=== PATIENT | female | born 1950 | race Caucasian/White ===

== ENCOUNTER 2017-09-12 08:40 | Emergency (ER) | payer MEDICAID, MEDICARE, OTHER ==
[2017-09-12 09:48] LABS: ABSOLUTE BASOPHILS # (AUTO) 0.1 10^3/uL (0.0-0.2); ABSOLUTE EOSINOPHILS # (AUTO) 0.1 10^3/uL (0.0-0.6); ABSOLUTE LYMPHOCYTES (AUTO) 2.2 10^3/uL (0.5-4.7); ABSOLUTE MONOCYTES (AUTO) 0.7 10^3/uL (0.1-1.4); BASOPHILS % (AUTO) 0.6 % (0-2); EOSINOPHILS % (AUTO) 0.9 % (0-6); HEMATOCRIT 47.6 % (36.0-47.0); HEMOGLOBIN 16.4 g/dL (12.0-15.5); LYMPHOCYTES % (AUTO) 16.8 % (13-45); MEAN CORPUSCULAR HEMOGLOBIN 30.9 pg (27.0-33.4); MEAN CORPUSCULAR HGB CONC 34.5 g/dL (32.0-36.0); MEAN CORPUSCULAR VOLUME 90 fl (80-97); MONOCYTES % (AUTO) 5.4 % (3-13); PLATELET COUNT 271 10^3/uL (150-450); RED BLOOD COUNT 5.31 10^6/uL (3.72-5.28); RED CELL DISTRIBUTION WIDTH 15.1 % (11.5-14.0); SEGMENTED NEUTROPHILS % (AUTO) 76.3 % (42-78); TOTAL CELLS COUNTED % (AUTO) 100 %; WHITE BLOOD COUNT 13.2 10^3/uL (4.0-10.5)
--- NOTE | 2017-09-12 10:08 | ER Document Report ---
ED General - General Chief Complaint: Swollen Glands Stated Complaint: NECK SWELLING Time Seen by Provider: 09/12/17 09:06 TRAVEL OUTSIDE OF THE [place] IN LAST 30 DAYS: No - HPI Notes: 67-year-old female who presents with several complaints. Patient primarily complains of a mass in her left axilla as well as a fullness and mass in her suprasternal region. When questioned further, she states for the last several weeks to months she has had a re-seen dysphagia for solids. She recently saw her primary care doctor and had her "thyroid checked" was told that everything was "fine". She has had no unplanned weight loss, no history of malignancy. Of note, she has had night sweats but only one night which was last night. She is on no new medications. She has had no recent cat bites or scratches. No other modifying factors, no other associated symptoms, no other provocative or palliative factors. - Related Data Allergies/Adverse Reactions: acetaminophen [From Darvocet-N] Allergy (Verified 09/12/17 08:45) ceftriaxone [From Rocephin] Allergy (Verified 09/12/17 08:45) ciprofloxacin [From Cipro] Allergy (Verified 09/12/17 08:45) diclofenac [From Arthrotec] Allergy (Verified 09/12/17 08:45) lincomycin Allergy (Verified 09/12/17 08:45) misoprostol [From Arthrotec] Allergy (Verified 09/12/17 08:45) propoxyphene [From Darvocet-N] Allergy (Verified 09/12/17 08:45) sulfamethoxazole [From Septra] Allergy (Verified 09/12/17 08:45) topiramate [From Topamax] Allergy (Verified 09/12/17 08:45) trimethoprim [From Septra] Allergy (Verified 09/12/17 08:45) Past Medical History - Social History Smoking Status: Never Smoker Family History: Reviewed & Not Pertinent - Past Medical History Cardiac Medical History: Reports: Hx Hypercholesterolemia, Hx Hypertension Neurological Medical History: Reports: Hx Migraine GI Medical History: Reports: Hx Gastroesophageal Reflux Disease Past Surgical History: Reports: Hx Section, Hx Herniorrhaphy, Hx Hysterectomy, Hx Orthopedic Surgery - Immunizations Immunizations up to date: Yes Review of Systems - Review of Systems Notes: Review of systems as in the history of present illness, otherwise negative. Physical Exam - Vital signs Vitals: Temp Pulse Resp BP Pulse Ox 97.6 F 78 16 196/102 H 99 09/12/17 08:45 09/12/17 08:45 09/12/17 08:45 09/12/17 08:45 09/12/17 08:45 - Notes Notes: General: Well developed . HEENT: Normocephalic, atraumatic. Pupils equal round reactive to light. No JVD. Chest: No trauma. There is fullness about the suprasternal notch, non-mobile. Nontender. No skin changes. Respiratory: Good air exchange, normal excursion. Cardiac: Regular rhythm. No murmurs or gallops. Abdomen: Soft, benign. Nondistended. Nontender. Back: No asymmetry or gross abnormality. Motor: Grossly normal power and tone. Neurologic: Alert, nonfocal. Cranial nerves II-12 are intact. Sensation intact. Vascular: Well perfused. Normal peripheral pulses. Skin: No petechiae or purpura. Axilla: The left axilla has an irregular mass that is palpable and mildly mildly nontender. No skin changes or erythema.. Course - Re-evaluation Re-evalutation: 67-year-old female presents with the after mentioned symptoms. Certainly would be concerned over the potential for malignancy, hematologic or otherwise. There is no obvious evidence of infection. May be related to underlying esophageal stricture. Doubt dissection. Plan to proceed with basic labs, x-ray , reassess. Labs reviewed, grossly unremarkable except for mild neutrophilia. Chest x-ray is unremarkable. Chemistries are normal. Given the patient's persistent symptoms, I like to proceed with CT imaging to evaluate for underlying mediastinal adenopathy, mass or metastatic disease. CT imaging is returned and is unremarkable. Patient is cautioned that she must follow close with her primary care physician , she may also benefit from GI follow-up to evaluate for esophageal stricture in her odynophagia/dysphagia. - Vital Signs Vital signs: Temp Pulse Resp BP Pulse Ox 97.6 F 78 16 196/102 H 99 09/12/17 08:45 09/12/17 08:45 09/12/17 08:45 09/12/17 08:45 09/12/17 08:45 - Laboratory Result Diagrams: 09/12/17 09:37 09/12/17 09:37 Laboratory results interpreted by me: 09/12/17 09/12/17 09:37 09:37 WBC 13.2 H RBC 5.31 H Hgb 16.4 H Hct 47.6 H RDW 15.1 H Absolute Neutrophils 10.0 H BUN 25 H Discharge - Discharge Clinical Impression: Dysphagia Qualifiers: Dysphagia type: unspecified Qualified Code(s): R13.10 - Dysphagia, unspecified Axillary mass Qualifiers: Laterality: left Qualified Code(s): R22.32 - Localized swelling, mass and lump , left upper limb Disposition: HOME, SELF-CARE Instructions: Dysphagia ([facility]), Growth or Mass, Pending Workup ([facility]) Referrals: RUKHSANA KAY MD [Primary Care Provider] - Follow up as needed
[2017-09-12 10:09] LABS: ALANINE AMINOTRANSFERASE 35 U/L (9-52); ALBUMIN 4.4 g/dL (3.5-5.0); ALKALINE PHOSPHATASE 92 U/L (38-126); ANION GAP 13 (5-19); ASPARTATE AMINO TRANSFERASE 26 U/L (14-36); BILIRUBIN,DIRECT 0.4 mg/dL (0.0-0.4); BILIRUBIN,TOTAL 1.1 mg/dL (0.2-1.3); BLOOD UREA NITROGEN 25 mg/dL (7-20); CALCIUM 9.8 mg/dL (8.4-10.2); CARBON DIOXIDE 28 mmol/L (22-30); CHLORIDE 103 mmol/L (98-107); GLUCOSE 95 mg/dL (75-110); POTASSIUM 4.4 mmol/L (3.6-5.0); SODIUM 143.6 mmol/L (137-145); TOTAL PROTEIN 7.8 g/dL (6.3-8.2)
[2017-09-12 12:13] VITALS: BP 181/89
--- NOTE | 2017-09-13 15:11 | RADIOLOGY REPORT (SQ) ---
EXAM DESCRIPTION: CHEST 2 VIEWS COMPLETED DATE/TIME: 09/12/2017 9:27 am REASON FOR STUDY: Cough, axillary and adenopathy, suprasternal mass COMPARISON: None. EXAM PARAMETERS: NUMBER OF VIEWS: Two view. TECHNIQUE: Frontal and lateral radiographic views of the chest acquired. RADIATION DOSE: N/A LIMITATIONS: None. FINDINGS: LUNGS AND PLEURA: Subsegmental atelectasis is present in the lower lung caraballo. There is no acute pulmonary infiltrate or pleural effusion. MEDIASTINUM AND HILAR STRUCTURES: No masses or contour abnormalities. HEART AND VASCULATURE: Heart normal size. No evidence of failure. BONES: No acute findings. HARDWARE: None. OTHER: No other significant finding. IMPRESSION: No acute cardiopulmonary disease. TECHNICAL DOCUMENTATION: JOB ID: [id number] [employer]- All Rights Reserved Reading location - IP/workstation name: [email or web address]
--- NOTE | 2017-09-13 15:13 | RADIOLOGY REPORT (SQ) ---
EXAM DESCRIPTION: CT CHEST WITH COMPLETED DATE/TIME: 09/12/2017 10:58 am REASON FOR STUDY: Left axill mass, suprasternal fullness, dysphagia COMPARISON: Chest x-ray 09/12/2017 EXAM PARAMETERS: TECHNIQUE: CT scan of the chest performed using helical scanning technique with dyn amic intravenous contrast injection. Images reviewed with lung, soft tissue and bone windows. Recon structed coronal and sagittal MPR images reviewed. All images stored on PACS. All CT scanners at this facility use dose modulation, iterative reconstruction, and/or weight based d osing when appropriate to reduce radiation dose to as low as reasonably achievable (ALARA). [facility]: Dose Right [facility]: [facility] [facility]: Dose Right [facility]: Teradose 4D [facility]: [employer] CONTRAST TYPE AND DOSE: 80mL Isovue 370- low osmolar. RENAL FUNCTION: BUN 25 creatinine 0.73 RADIATION DOSE: mGy. LIMITATIONS: None. FINDINGS: LUNGS AND PLEURA: No opacities, nodules, masses. No pneumothorax. No effusions. HILAR AND MEDIASTINAL STRUCTURES: No identified masses or abnormal nodes. HEART AND VASCULAR STRUCTURES: No aneurysm or dissection. No central pulmonary emboli. No pericardi al effusion. HARDWARE: None. UPPER ABDOMEN: Fatty infiltration of the liver. THYROID AND OTHER SOFT TISSUES: No masses. No adenopathy. BONES: No significant finding. OTHER: No other significant finding. IMPRESSION: 1. No acute cardiopulmonary findings. 2. No axillary mass is seen. 3. No suprasternal mass is seen. 4. There is fatty infiltration of the liver. TECHNICAL DOCUMENTATION: JOB ID: [id number] [facility] [id number]: Final reports with documentation of one or more dose reduction techniques (e.g., Automate d exposure control, adjustment of the mA and/or kV according to patient size, use of iterative recons truction technique) 2010 [employer]- All Rights Reserved Reading location - IP/workstation name: [email or web address]
== END 2017-09-12 12:13 | disposition home or self-care (01) ==
LOC: ER 08:40
DX: R13.10 Dysphagia, unspecified (principal); R22.32 Localized swelling, mass and lump, left upper limb; R61 Generalized hyperhidrosis; I10 Essential (primary) hypertension; Z88.5 Allergy status to narcotic agent; Z88.1 Allergy status to other antibiotic agents; Z88.3 Allergy status to other anti-infective agents; Z88.6 Allergy status to analgesic agent; Z88.8 Allergy status to other drugs, medicaments and biological substances
CPT/HCPCS: 36415; 71046; 71260; 80053; 85025; 99284

== ENCOUNTER 2018-04-19 08:23 | Emergency (ER) | payer MEDICARE ==
--- NOTE | 2018-04-19 09:54 | ER Document Report ---
ED Neuro Symptoms/Deficit - General Chief Complaint: Head Injury Stated Complaint: HEAD INJURY Time Seen by Provider: 04/19/18 09:25 Information source: Patient Notes: Patient states that 6 months ago she fell off a ladder from a height of about 6 foot. Patient states since then she has had frequent falls. Patient states that she has fallen at least 20 times in her yard and most recently fell 2 days ago off of a step ladder. Patient states when she fell off a stepladder she was only 2 feet off the ground. Patient states that she will frequently have to check her balance and she bumps into things at home. Patient states that when she uses her cell phone sometimes she will involuntarily tap on the screen with her hand. Patient states that this does occur with either of her hands that she is using to type. Patient states she has had a headache off and on to the frontal area although denies any headache at this time. Patient denies any chest pain abdominal pain nausea or vomiting. Patient does complain of neck and back pain although does state she has chronic arthritis and is on pain medication for this. Patient denies any recent illness or fever. 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 Patient denies any change in the appearance of her facial drooping. Patient denies any significant change in her symptoms but just got concerned about them collectively over the past 6 months. Patient states she was always very active and would frequently help her with repairs around the home including fixing the roof but now she does not feel safe getting on ladders. TRAVEL OUTSIDE OF THE [place] IN LAST 30 DAYS: No - HPI Patient complains to provider of: Difficulty walking, Falling Onset: Other - 6 months Duration: Continues in ED Quality of pain: Achy Pain Level: 3 Context: Falling Loss of consciousness: No loss of consciousness Baseline Cognitive: Alert, oriented X 3 Baseline Gait: Walks w/o assistance Alert To: Name/Voice Patient Orientation: Person, Place, Time, Events Vision problem/glaucoma: No Associated symptoms: Back pain, Falling injury, Involuntary movements, Neck pain. denies: Fever, Headache, Hurts to breathe, Nausea, Seizure, Short of breath, Vomiting Similar symptoms previously: Yes Recently seen / treated by doctor: No - Related Data Allergies/Adverse Reactions: acetaminophen [From Darvocet-N] Allergy (Verified 09/12/17 08:45) ceftriaxone [From Rocephin] Allergy (Verified 09/12/17 08:45) ciprofloxacin [From Cipro] Allergy (Verified 09/12/17 08:45) diclofenac [From Arthrotec] Allergy (Verified 09/12/17 08:45) lincomycin Allergy (Verified 09/12/17 08:45) misoprostol [From Arthrotec] Allergy (Verified 09/12/17 08:45) propoxyphene [From Darvocet-N] Allergy (Verified 09/12/17 08:45) sulfamethoxazole [From Septra] Allergy (Verified 09/12/17 08:45) topiramate [From Topamax] Allergy (Verified 09/12/17 08:45) trimethoprim [From Septra] Allergy (Verified 09/12/17 08:45) Past Medical History - General Information source: Patient - Social History Smoking Status: Never Smoker Frequency of alcohol use: None Drug Abuse: None Lives with: Spouse/Significant other Family History: Reviewed & Not Pertinent Patient has suicidal ideation: No Patient has homicidal ideation: No - Past Medical History Cardiac Medical History: Reports: Hx Hypercholesterolemia, Hx Hypertension Neurological Medical History: Reports: Hx Migraine, Other - "Blister aneurysm" Renal/ Medical History: Denies: Hx Peritoneal Dialysis GI Medical History: Reports: Hx Gastroesophageal Reflux Disease Past Surgical History: Reports: Hx Abdominal Surgery - hernia repair, Hx Section, Hx Cholecystectomy, Hx Herniorrhaphy, Hx Hysterectomy, Hx Orthopedic Surgery - back surgery x8 - Immunizations Immunizations up to date: Yes Review of Systems - Review of Systems Constitutional: No symptoms reported. denies: Fever, Weakness EENT: No symptoms reported. denies: Blurred vision Cardiovascular: No symptoms reported. denies: Chest pain Respiratory: No symptoms reported. denies: Cough, Short of breath Gastrointestinal: No symptoms reported. denies: Abdominal pain, Diarrhea, Nausea, Vomiting Genitourinary: No symptoms reported. denies: Dysuria Female Genitourinary: No symptoms reported Musculoskeletal: Back pain, Neck pain Skin: No symptoms reported Hematologic/Lymphatic: No symptoms reported Neurological/Psychological: Gait changes, Headaches - Off and on times 6 months , none today, Other - Frequent falls Physical Exam - Vital signs Vitals: Temp Pulse Resp BP Pulse Ox 97.8 F 81 16 173/81 H 96 04/19/18 08:27 18 08:27 18 08:27 18 08:27 18 08:27 - General General appearance: Appears well, Alert In distress: None - HEENT Head: Normocephalic, Atraumatic Eyes: Normal Conjunctiva: Normal Extraocular movements intact: Yes Ears: Normal Nasal: Normal Mouth/Lips: Other - Left-sided mouth droop Mucous membranes: Normal Pharynx: Normal Neck: Supple, Other - Posterior cervical midline tenderness C5 through 7 area, no step-off or deformity. No: Lymphadenopathy - Respiratory Respiratory status: No respiratory distress Chest status: Nontender Breath sounds: Normal. No: Rales, Rhonchi, Stridor, Wheezing Chest palpation: Normal - Cardiovascular Rhythm: Regular Heart sounds: S1 appreciated, S2 appreciated - Abdominal Inspection: Normal Distension: No distension Bowel sounds: Normal Tenderness: Nontender - Back Back: Tender - Left thoracic paraspinal tenderness T7 area, Vertebra tenderness - Thoracic midline tenderness T4 through 7 area, lower lumbar tenderness, no step-offs or deformities. No: Deformity/step-off - Extremities General upper extremity: Normal inspection, Nontender, Normal strength General lower extremity: Normal inspection, Nontender, Normal strength - Neurological Neuro grossly intact: Yes Orientation: AAOx4 [place] Coma Scale Eye Opening: Spontaneous Loren Coma Scale Verbal: Oriented Loren Coma Scale Motor: Obeys Commands Loren Coma Scale Total: 15 Speech: Normal. No: Dysarthria Cranial nerves: Facial palsy - Left and facial palsy. 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 No: Weakness - Psychological Associated symptoms: Normal affect, Normal mood - Skin Skin Temperature: Warm Skin Moisture: Dry Skin Color: Normal Course - Re-evaluation Re-evalutation: 04/19/18 12:27 Patient denies any headache chest pain abdominal pain at this time. Patient denies any significant change in her symptoms today versus over the past 6 months. Patient has seen her primary doctor and is awaiting neurology follow- up. Patient without any acute signs of hemorrhage or aneurysm noted on CT scan. Patient was able to ambulate in the room unassisted. Consulted with Dr. Blanco regarding patient presentation, does not recommend any additional testing including MRI today. Agrees with plan for outpatient follow-up with primary doctor neurology. - Vital Signs Vital signs: Temp Pulse Resp BP Pulse Ox 97.7 F 71 19 154/88 H 95 04/19/18 12:39 04/19/18 12:39 04/19/18 12:39 04/19/18 12:39 04/19/18 12:39 - Laboratory Result Diagrams: 04/19/18 10:15 04/19/18 10:15 Laboratory results interpreted by me: 04/19/18 10:15 Sodium 145.2 H Labs- Entire Visit 04/19/18 04/19/18 04/19/18 10:05 10:15 10:15 WBC 6.4 RBC 4.91 Hgb 15.1 Hct 43.7 MCV 89 MCH 30.7 MCHC 34.5 RDW 13.8 Plt Count 201 Seg Neutrophils % 60.9 Lymphocytes % 30.6 Monocytes % 5.9 Eosinophils % 2.0 Basophils % 0.6 Absolute Neutrophils 3.9 Absolute Lymphocytes 2.0 Absolute Monocytes 0.4 Absolute Eosinophils 0.1 Absolute Basophils 0.0 PT 13.7 INR 1.00 APTT 31.9 Sodium Potassium Chloride Carbon Dioxide Anion Gap BUN Creatinine Est GFR ( Amer) Est GFR (Non-Af Amer) Glucose POC Glucose Calcium Total Bilirubin Direct Bilirubin Neonat Total Bilirubin Neonat Direct Bilirubin Neonat Indirect Bili AST ALT Alkaline Phosphatase Creatine Kinase CK-MB (CK-2) Troponin I Total Protein Albumin Urine Color YELLOW Urine Appearance TURBID Urine pH 7.0 Ur Specific [place] 1.012 Urine Protein NEGATIVE Urine Glucose (UA) NEGATIVE Urine Ketones NEGATIVE Urine Blood NEGATIVE Urine Nitrite NEGATIVE Urine Bilirubin NEGATIVE Urine Urobilinogen NEGATIVE Ur Leukocyte Esterase NEGATIVE Amorphous Sediment Auto TRACE Urine Mucus (Auto) RARE Urine Ascorbic Acid NEGATIVE 04/19/18 04/19/18 04/19/18 10:15 10:15 10:56 WBC RBC Hgb Hct MCV MCH MCHC RDW Plt Count Seg Neutrophils % Lymphocytes % Monocytes % Eosinophils % Basophils % Absolute Neutrophils Absolute Lymphocytes Absolute Monocytes Absolute Eosinophils Absolute Basophils PT INR APTT Sodium 145.2 H Potassium 4.0 Chloride 104 Carbon Dioxide 30 Anion Gap 11 BUN 14 Creatinine 0.87 Est GFR ( Amer) > 60 Est GFR (Non-Af Amer) > 60 Glucose 95 POC Glucose 77 Calcium 9.9 Total Bilirubin 0.7 Direct Bilirubin 0.2 Neonat Total Bilirubin Not Reportable Neonat Direct Bilirubin Not Reportable Neonat Indirect Bili Not Reportable AST 26 ALT 23 Alkaline Phosphatase 107 Creatine Kinase 43 CK-MB (CK-2) 0.37 Troponin I < 0.012 Total Protein 7.3 Albumin 4.3 Urine Color Urine Appearance Urine pH Ur Specific [place] Urine Protein Urine Glucose (UA) Urine Ketones Urine Blood Urine Nitrite Urine Bilirubin Urine Urobilinogen Ur Leukocyte Esterase Amorphous Sediment Auto Urine Mucus (Auto) Urine Ascorbic Acid - Diagnostic Test Radiology reviewed: Reports reviewed - EKG Interpretation by Me EKG shows normal: Sinus rhythm Additional EKG results interpreted by me: 04/19/18 12:26 qt prolonged, QTC 513 Discharge - Discharge Clinical Impression: Gait abnormality Fall Qualifiers: Encounter type: initial encounter Qualified Code(s): W19.XXXA - Unspecified fall, initial encounter Cervical strain Qualifiers: Encounter type: initial encounter Qualified Code(s): S16.1XXA - Strain of muscle, fascia and tendon at neck level, initial encounter Low back pain Qualifiers: Chronicity: chronic Back pain laterality: unspecified Sciatica presence: without sciatica Qualified Code(s): M54.5 - Low back pain Condition: Stable Disposition: HOME, SELF-CARE Instructions: Arthritis ([facility]), Low Back Pain ([facility]), Neck Injury (Cervical Strain) ([facility]) Additional Instructions: Return immediately for any new or worsening symptoms Followup with your primary care provider, call today to make a follow-up appointment Your primary doctor can order additional testing as needed for further evaluation. No driving until cleared by your primary doctor Follow-up with a motorcycle subassembly repairer for further evaluation as well. Call Dr. Soni's office today for follow-up appointment. Avoid medications that can cause QT prolongation Prescriptions: Walker [Folding Walker] 1 each MC ASDIR PRN #1 each PRN Reason: Referrals: NILE FERMIN MD [NO LOCAL MD] - Follow up in 3-5 days VALERIA COOPER PA-C [COMMUNITY BASED STAFF] - Follow up tomorrow MINA SONI MD [ACTIVE STAFF] - Follow up tomorrow
[2018-04-19 10:31] LABS: ABSOLUTE EOSINOPHILS # (AUTO) 0.1 10^3/uL (0.0-0.6); ABSOLUTE MONOCYTES (AUTO) 0.4 10^3/uL (0.1-1.4); ABSOLUTE NEUT (AUTO) 3.9 10^3/uL (1.7-8.2); BASOPHILS % (AUTO) 0.6 % (0-2); HEMATOCRIT 43.7 % (36.0-47.0); HEMOGLOBIN 15.1 g/dL (12.0-15.5); LYMPHOCYTES % (AUTO) 30.6 % (13-45); MEAN CORPUSCULAR HEMOGLOBIN 30.7 pg (27.0-33.4); MEAN CORPUSCULAR HGB CONC 34.5 g/dL (32.0-36.0); MEAN CORPUSCULAR VOLUME 89 fl (80-97); MONOCYTES % (AUTO) 5.9 % (3-13); PLATELET COUNT 201 10^3/uL (150-450); RED BLOOD COUNT 4.91 10^6/uL (3.72-5.28); RED CELL DISTRIBUTION WIDTH 13.8 % (11.5-14.0); SEGMENTED NEUTROPHILS % (AUTO) 60.9 % (42-78); TOTAL CELLS COUNTED % (AUTO) 100 %; WHITE BLOOD COUNT 6.4 10^3/uL (4.0-10.5)
[2018-04-19 10:35] LABS: PARTIAL THROMBOPLASTIN TIME 31.9 SEC (23.5-35.8)
[2018-04-19 10:45] LABS: PROTHROMBIN TIME 13.7 SEC (11.4-15.4)
[2018-04-19 10:52] LABS: ALANINE AMINOTRANSFERASE 23 U/L (9-52); ALBUMIN 4.3 g/dL (3.5-5.0); ALKALINE PHOSPHATASE 107 U/L (38-126); ANION GAP 11 (5-19); ASPARTATE AMINO TRANSFERASE 26 U/L (14-36); BILIRUBIN,DIRECT 0.2 mg/dL (0.0-0.4); BILIRUBIN,TOTAL 0.7 mg/dL (0.2-1.3); BLOOD UREA NITROGEN 14 mg/dL (7-20); CALCIUM 9.9 mg/dL (8.4-10.2); CARBON DIOXIDE 30 mmol/L (22-30); CHLORIDE 104 mmol/L (98-107); CREATINE KINASE 43 U/L (30-135); GLUCOSE 95 mg/dL (75-110); SODIUM 145.2 mmol/L (137-145); TOTAL PROTEIN 7.3 g/dL (6.3-8.2)
[2018-04-19 11:03] LABS: CREATINE KINASE MB 0.37 ng/mL (<4.55)
[2018-04-19 11:04] LABS: AMORPHOUS SEDIMENT,URINE TRACE /HPF; APPEARANCE,URINE TURBID; BILIRUBIN,URINE NEGATIVE (NEGATIVE); COLOR,URINE YELLOW; GLUCOSE, URINE NEGATIVE (NEGATIVE); KETONES,URINE NEGATIVE (NEGATIVE); LEUKOCYTE ESTERASE,URINE NEGATIVE (NEGATIVE); NITRITE,URINE NEGATIVE (NEGATIVE); PROTEIN,URINE NEGATIVE (NEGATIVE); URINE SPECIFIC GRAVITY 1.012; UROBILINOGEN,URINE NEGATIVE mg/dL (<2.0)
[2018-04-19 11:06] LABS: TROPONIN I < 0.012 ng/mL
--- NOTE | 2018-04-19 11:14 | RADIOLOGY REPORT (SQ) ---
EXAM DESCRIPTION: CHEST SINGLE VIEW COMPLETED DATE/TIME: 04/19/2018 10:39 am REASON FOR STUDY: freq falls, head/back injuryu COMPARISON: September 2017 EXAM PARAMETERS: NUMBER OF VIEWS: One view. TECHNIQUE: Single frontal radiographic view of the chest acquired. RADIATION DOSE: NA LIMITATIONS: None. FINDINGS: LUNGS AND PLEURA: No opacities, masses or pneumothorax. No pleural effusion. Minimal line ar densities are again identified in the lower lung caraballo which could represent subsegmental atelect asis or scarring. MEDIASTINUM AND HILAR STRUCTURES: No masses. Contour normal. HEART AND VASCULAR STRUCTURES: Heart normal in size. Normal vasculature. BONES: No acute findings. There is a minimal thoracolumbar scoliosis with associated degenerative ch anges P HARDWARE: Orthopedic hardware is identified in the lower cervical spine OTHER: No other significant finding. IMPRESSION: No significant interval change. No acute changes. Other findings as noted above TECHNICAL DOCUMENTATION: JOB ID: [id number] [employer]- All Rights Reserved Reading location - IP/workstation name: [email or web address]
--- NOTE | 2018-04-19 11:15 | RADIOLOGY REPORT (SQ) ---
EXAM DESCRIPTION: T SPINE AP/LAT COMPLETED DATE/TIME: 04/19/2018 10:40 am REASON FOR STUDY: fall, back pain COMPARISON: None. NUMBER OF VIEWS: Two views. TECHNIQUE: AP and lateral radiographic images acquired of the thoracic spine. LIMITATIONS: None. FINDINGS: MINERALIZATION: Normal. ALIGNMENT: There is a minimal thoracolumbar scoliosis. VERTEBRAE: No fracture or bone lesion. Maintained height, normal segmentation. DISCS: No significant loss of height or significant narrowing. Osteophytic lipping is identified at multiple levels. HARDWARE: None in the spine. MEDIASTINUM AND SOFT TISSUES: Normal heart size and aortic contour. No soft tissue abnormality. VISUALIZED LUNG BAIRES: Clear. OTHER: No other significant finding. IMPRESSION: Degenerative changes without evidence for fracture. TECHNICAL DOCUMENTATION: JOB ID: [id number] [employer]- All Rights Reserved Reading location - IP/workstation name: [email or web address]
--- NOTE | 2018-04-19 11:17 | RADIOLOGY REPORT (SQ) ---
EXAM DESCRIPTION: L SPINE WHOLE COMPLETED DATE/TIME: 04/19/2018 10:44 am REASON FOR STUDY: fall, low back pain COMPARISON: None. NUMBER OF VIEWS: Five views including obliques. TECHNIQUE: AP, lateral, oblique, and sacral radiographic images acquired of the lumbar spine. LIMITATIONS: None. FINDINGS: MINERALIZATION: Normal. SEGMENTATION: Normal. No transitional anatomy. ALIGNMENT: Mild lumbar scoliosis convex to the left is identified. VERTEBRAE: Maintained height. No fracture or worrisome bone lesion. DISCS: There is almost complete loss of the L4-L5 disc space heights with associated osteophytic melisa ing. Minimal osteophytic lipping is identified at other levels. POSTERIOR ELEMENTS: Post laminectomy changes are identified at the L5 level. HARDWARE: None in the spine. PARASPINAL SOFT TISSUES: Normal. PELVIS: Intact as visualized. No fractures or worrisome bone lesions. SI joints intact. OTHER: No other significant finding. IMPRESSION: Degenerative and postsurgical changes as noted above TECHNICAL DOCUMENTATION: JOB ID: [id number] [employer]- All Rights Reserved Reading location - IP/workstation name: [email or web address]
--- NOTE | 2018-04-19 11:41 | RADIOLOGY REPORT (SQ) ---
EXAM DESCRIPTION: CTA HEAD COMPLETED DATE/TIME: 04/19/2018 11:16 am REASON FOR STUDY: freq falls, hx aneurysm, gait instability COMPARISON: None TECHNIQUE: Pre and post IV contrast scanning, thin section axial imaging through the brain to evalua te the arterial structures. Source and MIP images are saved and reviewed on PACS. Advanced 3D imaging as volume-rendering, MIPs, SSD performed? yes All CT scanners at this facility use dose modulation, iterative reconstruction, and/or weight based d osing when appropriate to reduce radiation dose to as low as reasonably achievable (ALARA). [facility]: Dose Right [facility]: CareDose [facility]: Dose Right [facility]: Teradose 4D [facility]: [employer]! CONTRAST TYPE AND DOSE: 80 mL Omnipaque 350 iodinated contrast RENAL FUNCTION: GFR > 60. LIMITATIONS: None. FINDINGS: [place]: The anterior, middle, posterior cerebral arteries are all patent. No ev idence of aneurysm or focal stenosis. POSTERIOR CIRCULATION: The distal vertebral arteries are patent as is the basilar artery. No aneurysm . BRAIN: No gross enhancing lesions as visualized. Periventricular white matter hypodensity consistent with small vessel white matter disease. BONES: Intact as visualized. SINUSES: No fluid or mucosal thickening. OTHER: No other significant finding. IMPRESSION: NO CTA EVIDENCE OF STENOSIS OR ANEURYSM OF THE [place]. TECHNICAL DOCUMENTATION: JOB ID: [id number] Quality ID # [id number]: Final reports with documentation of one or more dose reduction techniques (e.g., Au tomated exposure control, adjustment of the mA and/or kV according to patient size, use of iterative reconstruction technique) 2010 [employer]- All Rights Reserved Reading location - IP/workstation name: [email or web address]
--- NOTE | 2018-04-19 11:42 | RADIOLOGY REPORT (SQ) ---
EXAM DESCRIPTION: CTA NECK COMPLETED DATE/TIME: 04/19/2018 11:16 am REASON FOR STUDY: freq falls, hx aneurysm, gait instability COMPARISON: None. TECHNIQUE: Axial dynamic scanning technique with dynamic contrast enhancement through the extra-hobbies and crafts sales representative nial carotid and vertebral arteries. Multiplanar reconstruction. 3-D MIPS and Volume-rendered imag es acquired at the workstation and saved to PACS. Images are reviewed in soft tissue, bone, lung w indows. All CT scanners at this facility use dose modulation, iterative reconstruction, and/or weight based d osing when appropriate to reduce radiation dose to as low as reasonably achievable (ALARA). [facility]: Dose Right [facility]: CareDose [facility]: Dose Right [facility]: Teradose 4D [facility]: FIGS CONTRAST TYPE AND DOSE: contrast/concentration: Isovue 350.00 mg/ml; Total Contrast Delivered: 80.0 ml; Total Saline Delivered: 75.0 ml RENAL FUNCTION: Creatinine 0.87 LIMITATIONS: Study is limited due to artifact related to orthopedic hardware in the cervical spine FINDINGS: AORTIC ARCH: Normal three-vessel origin. Bilateral subclavian arteries are patent. No d issection. RIGHT CAROTIDS: Patent common, internal and external carotid arteries without suggestion of significa nt stenosis or irregular plaque. No dissection. RIGHT VERTEBRAL: Patent. No dissection. LEFT CAROTIDS: Patent common, internal and external carotid arteries without suggestion of significan t stenosis or irregular plaque. No dissection. LEFT VERTEBRAL: Patent. No dissection. OTHER: No other significant finding. OTHER: 3-D reconstructions confirm findings. IMPRESSION: NORMAL CTA OF THE EXTRA-CRANIAL CAROTID AND VERTEBRAL ARTERIES. COMMENT: Quality ID #[id number]: Measurements of distal internal carotid diameter were used as the denomina tor for stenosis measurement. TECHNICAL DOCUMENTATION: JOB ID: [id number] Quality ID # [id number]: Final reports with documentation of one or more dose reduction techniques (e.g., Au tomated exposure control, adjustment of the mA and/or kV according to patient size, use of iterative reconstruction technique) 2010 [employer]- All Rights Reserved Reading location - IP/workstation name: [email or web address]
[2018-04-19] MEDS ORDERED: LIDOCAINE 5% (700 MG) TRANSDERMAL ADH..PATCH TP ONE (12:31)
[2018-04-19 12:40] VITALS: BP 154/88
--- NOTE | 2018-04-19 20:53 | EKG REPORT ---
SEVERITY:- ABNORMAL ECG - SINUS RHYTHM PROLONGED QT INTERVAL : Confirmed by: Inocencia Moreau MD 19-Apr-2018 20:52:54
== END 2018-04-19 13:37 | disposition home or self-care (01) ==
LOC: ER 08:23
DX: S16.1XXA Strain of muscle, fascia and tendon at neck level, initial encounter (principal); M54.5 Low back pain; R26.9 Unspecified abnormalities of gait and mobility; W11.XXXA Fall on and from ladder, initial encounter; Z91.81 History of falling; I10 Essential (primary) hypertension
CPT/HCPCS: 36415; 70496; 70498; 71045; 72070; 72110; 80053; 81001; 82550; 82553; 82962; 84484; 85025; 85610; 85730; 93005; 93010; 99284

== ENCOUNTER 2018-11-09 15:10 | Emergency (ER) | payer MEDICARE ==
[2018-11-09 15:16] VITALS: BP 176/82
--- NOTE | 2018-11-09 15:23 | ER Document Report ---
ED Medical Screen (RME) - General Chief Complaint: Laceration Stated Complaint: LACERATION TO LEFT LEG Time Seen by Provider: 11/09/18 15:11 Primary Care Provider: RUKHSANA KAY MD [Primary Care Provider] - Follow up as needed Mode of Arrival: Ambulatory Information source: Patient Notes: 68-year-old female presents to ED for laceration to the left lower leg. She states there was some glass in a trash can and she ran her leg against the glass cutting the lower leg. She is on 81 mg of aspirin and is having a hard time stopping the bleeding to her lower leg. Patient is alert oriented respirations regular and unlabored speaking in full sentences walks with even steady gait. She states her last tetanus was 4 years ago. Bleeding is a slow trickle wound was redressed after rinsing with saline. Patient was taken to x-ray to ensure no glass in the wound. I have greeted and performed a rapid initial assessment of this patient. A comprehensive ED assessment and evaluation of the patient, analysis of test results and completion of medical decision making process will be conducted by an additional ED providers. Dictation of this chart was performed using voice recognition software; therefore, there may be some unintended grammatical errors. TRAVEL OUTSIDE OF THE [place] IN LAST 30 DAYS: No - Related Data Allergies/Adverse Reactions: acetaminophen [From Darvocet-N] Allergy (Verified 11/09/18 15:12) ceftriaxone [From Rocephin] Allergy (Verified 11/09/18 15:12) ciprofloxacin [From Cipro] Allergy (Verified 11/09/18 15:12) diclofenac [From Arthrotec] Allergy (Verified 11/09/18 15:12) lincomycin Allergy (Verified 11/09/18 15:12) misoprostol [From Arthrotec] Allergy (Verified 11/09/18 15:12) propoxyphene [From Darvocet-N] Allergy (Verified 11/09/18 15:12) sulfamethoxazole [From Septra] Allergy (Verified 11/09/18 15:12) topiramate [From Topamax] Allergy (Verified 11/09/18 15:12) trimethoprim [From Septra] Allergy (Verified 11/09/18 15:12) Past Medical History - Past Medical History Cardiac Medical History: Reports: Hx Hypercholesterolemia, Hx Hypertension Neurological Medical History: Reports: Hx Migraine Renal/ Medical History: Denies: Hx Peritoneal Dialysis GI Medical History: Reports: Hx Gastroesophageal Reflux Disease Past Surgical History: Reports: Hx Abdominal Surgery - hernia repair, Hx Section, Hx Cholecystectomy, Hx Herniorrhaphy, Hx Hysterectomy, Hx Orthopedic Surgery - back surgery x8 - Immunizations Immunizations up to date: Yes Doctor's Discharge - Discharge Referrals: RUKHSANA KAY MD [Primary Care Provider] - Follow up as needed
--- NOTE | 2018-11-09 15:35 | RADIOLOGY REPORT (SQ) ---
EXAM DESCRIPTION: TIBIA FIBULA LEFT COMPLETED DATE/TIME: 11/09/2018 3:27 pm REASON FOR STUDY: Lower leg with glass COMPARISON: None. NUMBER OF VIEWS: Two views. TECHNIQUE: Two radiographic images acquired of the left tibia and fibula to include the knee and ank le in at least one projection. LIMITATIONS: None. FINDINGS: MINERALIZATION: Normal. BONES: No acute fracture or dislocation. No worrisome bone lesions. SOFT TISSUES: No obvious swelling or foreign body. OTHER: No other significant finding. IMPRESSION: NEGATIVE STUDY OF THE LEFT TIBIA AND FIBULA. NO RADIOGRAPHIC EVIDENCE OF ACUTE INJURY. TECHNICAL DOCUMENTATION: JOB ID: [id number] [employer]- All Rights Reserved Reading location - IP/workstation name: [email or web address]
[2018-11-09] MEDS ORDERED: LIDOCAINE 1% INJ-PF (10 MG/ML) 30 ML SDV INJ ONE (16:26)
--- NOTE | 2018-11-09 16:42 | ER Document Report ---
ED Wound - General Chief Complaint: Laceration Stated Complaint: LACERATION TO LEFT LEG Time Seen by Provider: 11/09/18 15:11 Primary Care Provider: RUKHSANA KAY MD [NO LOCAL MD] - Follow up as needed Mode of Arrival: Ambulatory Notes: This is a pleasant 68-year-old female to the emergency department for laceration on her left iraheta. Patient was taking the trash out and there was a piece of glass that poked through the sac and cut her in the leg. Up-to-date on her tetanus with a tetanus shot given approximately 4 years ago. Denies any other major symptoms at this time. TRAVEL OUTSIDE OF THE [place] IN LAST 30 DAYS: No - HPI Patient complains to provider of: Laceration Occurred: Just prior to arrival Onset/Duration: Sudden Severity: Mild Pain Level: 1 Context: Injury - Related Data Allergies/Adverse Reactions: acetaminophen [From Darvocet-N] Allergy (Verified 11/09/18 15:12) ceftriaxone [From Rocephin] Allergy (Verified 11/09/18 15:12) ciprofloxacin [From Cipro] Allergy (Verified 11/09/18 15:12) diclofenac [From Arthrotec] Allergy (Verified 11/09/18 15:12) lincomycin Allergy (Verified 11/09/18 15:12) misoprostol [From Arthrotec] Allergy (Verified 11/09/18 15:12) propoxyphene [From Darvocet-N] Allergy (Verified 11/09/18 15:12) sulfamethoxazole [From Septra] Allergy (Verified 11/09/18 15:12) topiramate [From Topamax] Allergy (Verified 11/09/18 15:12) trimethoprim [From Septra] Allergy (Verified 11/09/18 15:12) Past Medical History - General Information source: Patient - Social History Smoking Status: Never Smoker Frequency of alcohol use: None Drug Abuse: None Lives with: Spouse/Significant other Family History: Reviewed & Not Pertinent - Past Medical History Cardiac Medical History: Reports: Hx Hypercholesterolemia, Hx Hypertension Neurological Medical History: Reports: Hx Migraine Renal/ Medical History: Denies: Hx Peritoneal Dialysis GI Medical History: Reports: Hx Gastroesophageal Reflux Disease Past Surgical History: Reports: Hx Abdominal Surgery - hernia repair, Hx Section, Hx Cholecystectomy, Hx Herniorrhaphy, Hx Hysterectomy, Hx Orthopedic Surgery - back surgery x8 - Immunizations Immunizations up to date: Yes Review of Systems - Review of Systems Constitutional: denies: Fever, Weakness Cardiovascular: denies: Chest pain, Palpitations, Heart racing Respiratory: denies: Cough, Short of breath, Wheezing Musculoskeletal: See HPI. denies: Muscle pain, Deformity Skin: See HPI, Other - Laceration to the left lower extremity Physical Exam - Vital signs Vitals: Temp Pulse Resp BP Pulse Ox 97.5 F 74 16 176/82 H 97 11/09/18 15:15 11/09/18 15:15 11/09/18 15:15 11/09/18 15:15 11/09/18 15:15 Interpretation: Normal - General General appearance: Appears well, Alert - Respiratory Respiratory status: No respiratory distress Chest status: Nontender Breath sounds: Normal Chest palpation: Normal - Cardiovascular Rhythm: Regular Heart sounds: Normal auscultation Murmur: No - Extremities General upper extremity: Normal inspection, Nontender, Normal color, Normal ROM, Normal temperature General lower extremity: Normal inspection, Tender - Tenderness to palpation at LLE laceration site, Normal color, Normal ROM, Normal temperature, Normal weight bearing. No: Shanell's sign - Neurological Neuro grossly intact: Yes Cognition: Normal Orientation: AAOx4 Loren Coma Scale Eye Opening: Spontaneous [place] Coma Scale Verbal: Oriented Loren Coma Scale Motor: Obeys Commands Loren Coma Scale Total: 15 Speech: Normal Motor strength normal: LUE, RUE, LLE, RLE Sensory: Normal - Skin Skin Temperature: Warm Skin Moisture: Dry Skin Color: Other - There is a 3 cm linear laceration into the muscle of the left anterior tibial area. No tendon involvement. No foreign bodies. Course - Re-evaluation Re-evalutation: 11/09/18 17:51 Patient is a very deep laceration which involve the muscle. Multilayer closure was performed. Please see procedure note. Due to the depth of this laceration and the muscle involvement I do think it would be beneficial to place her on some antibiotics to prevent infection as it did occur due to a trashcan sharp object. Is comfortable with this plan. She states that she has taken Keflex in the past. However, she has a Rocephin allergy. I think I will put her on some doxycycline instead. - Vital Signs Vital signs: Temp Pulse Resp BP Pulse Ox 97.5 F 74 16 176/82 H 97 11/09/18 15:15 11/09/18 15:15 11/09/18 15:15 11/09/18 15:15 11/09/18 15:15 Procedures - Laceration/Wound Repair Left Leg Time completed: 17:53 Wound length (cm): 3 Wound's Depth, Shape: Into muscle, Linear Laceration pre-procedure: Betadine prep applied, Shur-Clens applied Anesthetic type: 1% Lidocaine Volume Anesthetic (mLs): 20 Wound explored: Clean, No foreign body removed Wound Repaired With: Sutures Suture Size/Type: Vicryl, 4:0, 3:0, Prolene Number of Sutures: 14 - For deep sutures placed. 10 dermal closure sutures. Layer Closure?: Yes - Deep, subcu and superficial Deep Layer Suture Size/Type: 3:0 - 3-0 Vicryl Number Deep Layer Sutures: 4 Post-procedure wound care: Sterile dressing applied Post-procedure NV exam normal: Yes Complications: No Discharge - Discharge Clinical Impression: Laceration Condition: Good Disposition: HOME, SELF-CARE Instructions: Antibiotic Ointment Protection ([facility]), Laceration Care ([facility]), Prophylactic Antibiotic ([facility]) Additional Instructions: Get your stitches removed in approximately 2 weeks. In the event that you notice any redness, swelling or signs of infection or other issues please return. It may be beneficial to keep a compression dressing on this for the next several days to decrease the hematoma. You will have a lot of bruising and swelling around this area as well. Prescriptions: Doxycycline Hyclate 100 mg PO BID 5 Days #10 capsule Fluconazole [Diflucan] 150 mg PO DAILY 2 Days #2 tablet Referrals: RUKHSANA KAY MD [NO LOCAL MD] - Follow up as needed
[2018-11-09] MEDS ORDERED: DOXYCYCLINE HYCLATE 100 MG TABLET PO ONE (17:57)
== END 2018-11-10 05:55 | disposition home or self-care (01) ==
LOC: ER 15:10
DX: S81.812A Laceration without foreign body, left lower leg, initial encounter (principal); W25.XXXA Contact with sharp glass, initial encounter; Y93.E9 Activity, other interior property and clothing maintenance; Y92.008 Other place in unspecified non-institutional (private) residence as the place of occurrence of the external cause; I10 Essential (primary) hypertension; E78.00 Pure hypercholesterolemia, unspecified; Z88.6 Allergy status to analgesic agent; Z88.3 Allergy status to other anti-infective agents; Z90.49 Acquired absence of other specified parts of digestive tract; Z90.710 Acquired absence of both cervix and uterus
CPT/HCPCS: 99283